=== PATIENT | female | born 1980 | race Caucasian/White ===

== ENCOUNTER 2019-10-03 06:08 | Inpatient (IN) ==
[2019-10-03] MEDS ORDERED: Metoclopramide 10 MG/2 ML VIAL IVP PRN (06:18)
[2019-10-03] MEDS ORDERED: Naloxone 0.4 MG/ML INJ IVP PRN (06:18)
[2019-10-03] MEDS ORDERED: Ondansetron 4 MG/2 ML VIAL IVP PRN (06:18)
[2019-10-03] MEDS ORDERED: Famotidine 20 MG/2 ML VIAL IVP PRN (06:18)
[2019-10-03] MEDS ORDERED: Penicillin G Potassium 5,000,000 UNIT in 0.9 % Sodium Chloride Mini Bag 100 ML IVPB ONE (06:22)
[2019-10-03] MEDS ORDERED: Betamethasone Acet/SodPhos 30 MG/5 ML VIAL IM SCH (06:30)
[2019-10-03 06:33] LABS: Basophils % 0.2 %; Eosinophils % 0.2 %; Hematocrit 41.3 % (35.3-44.9); Hemoglobin 13.3 g/dL (11.5-15.4); Immature Granulocytes % 0.5 % (0-4); Lymphocytes # 1.6 K/mcL (0.6-4.6); Lymphocytes % 9.6 %; Mean Corpuscular HGB Conc 32.2 g/dL (31.6-35.5); Mean Corpuscular Hemoglobin 28.4 pg (28.0-33.3); Mean Corpuscular Volume 88.1 fL (83.0-100.0); Mean Platelet Volume 9.7 fL (9.4-12.4); Monocytes # 0.7 K/mcL (0.0-1.3); Monocytes % 4.3 %; Neutrophils # 14.1 K/mcL (1.6-8.9); Platelet Count 346 K/mcL (140-400); Red Blood Count 4.69 M/mcL (3.82-4.97); Red Cell Distribution Width 14.3 % (11.5-14.5); Segmented Neutrophils % 85.2 %; White Blood Count 16.5 K/mcL (4.3-11.1)
[2019-10-03] MEDS ORDERED: *HR* FentaNYL (PF) 100 MCG/2 ML VIAL EP ONE (08:44)
[2019-10-03] MEDS ORDERED: EPHEDrine 50 MG/ML VIAL IVP PRN (08:44)
[2019-10-03] MEDS ORDERED: Bupivacaine-MPF 0.25% 10 ML VIAL EP ONE (08:44)
[2019-10-03] MEDS ORDERED: Epidural Premix (fent/bupiv) 110 ML EP SCH (08:45)
[2019-10-03] MEDS ORDERED: Epidural Premix (fent/bupiv) 110 ML EP ONE (08:49)
[2019-10-03] MEDS ORDERED: Ringers Solution, Lactated 1,000 ML ONE ×2 (09:02→11:28)
[2019-10-03 09:03] LABS: Amphetamine Screen,Urine Negative ng/mL (Cutoff=1000); Barbiturate Screen,Urine Negative ng/mL (Cutoff=200); Benzodiazepines Screen,Urine Negative ng/mL (Cutoff=200); Cannabinoid Screen,Urine Positive ng/mL (Cutoff = 50); Cocaine Screen,Urine Negative ng/mL (Cutoff= 300); Opiate Screen,Urine Negative ng/mL (Cutoff=300); Phencyclidine Screen,Urine Negative ng/mL (Cutoff=25)
[2019-10-03 09:59] LABS: Bilirubin,Urine Negative (Negative); Blood,Urine Negative (Negative); Clarity,Urine Clear (Clear); Color,Urine Dark Yellow (Yellow); Glucose,Urine (UA) Normal (Normal); Ketones,Urine >=160 mg/dL (Negative); Leukocyte Esterase,Urine Negative (Negative); Nitrite,Urine Negative (Negative); Protein,Urine Trace mg/dL (Neg-Trace); Specific Gravity,Urine > 1.030 (1.010-1.025); Urobilinogen,Urine Normal (Normal)
[2019-10-03 10:07] LABS: Alanine Aminotransferase 9 Units/L (7-52); Aspartate Amino Transferase 16 Units/L (13-39); BUN/Creatinine Ratio 15 (6-26); Blood Urea Nitrogen 8 mg/dL (6-20); Lactate Dehydrogenase 150 Units/L (140-271); Uric Acid 4.5 mg/dL (2.3-7.6); eGFR For African Americans > 60 (> 60); eGFR For Non-African Americans > 60 (> 60)
[2019-10-03] MEDS ORDERED: *HR* Phenylephrine 10 MG/ML VIAL ONE (10:09)
[2019-10-03 10:16] LABS: Protein/Creatinine Ratio,Urine 0.26 mg/mg (0.00-0.20)
[2019-10-03] MEDS ORDERED: Penicillin G Potassium 2,500,000 UNIT in 0.9 % Sodium Chloride 100 ML IVPB SCH (10:30)
[2019-10-03] MEDS ORDERED: Lanolin 7 G OINT...G. TP PRN (17:29)
[2019-10-03] MEDS ORDERED: Rho Immune Globulin 1,500 UNIT SYRINGE IM PRN (17:29)
[2019-10-03] MEDS ORDERED: Measles/Mumps/Rubella Vacc 0.5 ML VIAL SQ PRN (17:29)
[2019-10-03] MEDS ORDERED: Oxytocin 20 units/ LR 1000 mL 20 UNIT/1,000 ML BAG IVC SCH (17:29)
[2019-10-03] MEDS: Acetaminophen 325 MG TABLET PO SCH (18:08)
[2019-10-03] MEDS: Ibuprofen 600 MG TABLET PO SCH (18:10)
[2019-10-04] MEDS ORDERED: Ondansetron 4 MG/2 ML VIAL IVP ONE (02:12)
[2019-10-04] MEDS: Ibuprofen 600 MG TABLET PO SCH ×3 (07:53→11:46)
[2019-10-04] MEDS: Acetaminophen 325 MG TABLET PO SCH ×3 (07:53→11:46)
[2019-10-04] MEDS ORDERED: Prenatal Vit/FA 1 EACH TABLET PO SCH (09:00)
[2019-10-04 12:01] VITALS: BP 137/87
== END 2019-10-04 15:48 | disposition home or self-care (01) | DRG 560 ==
LOC: 1NENULAB 06:08 → 1NENUOBS 17:03
PROVIDERS: ADMIT Obstetrics & Gynecology; ATTEND Obstetrics & Gynecology